=== PATIENT | female | born 1990 | race African-American/Black ===

== ENCOUNTER 2025-06-07 16:50 | Emergency (ER) | payer SELFPAY ==
[2025-06-07] MEDS ORDERED: Ibuprofen 200 MG TAB ONE (18:40)
[2025-06-07] MEDS ORDERED: Lidocaine 1% (PF) 30 ML VIAL ONE (19:27)
== END 2025-06-07 19:45 ==
LOC: CSHERS 16:50
DX: S62.611A Displaced fracture of proximal phalanx of left index finger, initial encounter for closed fracture (principal); S61.216A Laceration without foreign body of right little finger without damage to nail, initial encounter; W19.XXXA Unspecified fall, initial encounter
CPT/HCPCS: 12001; 26720